=== PATIENT | male | born 1985 | race Caucasian/White ===

== ENCOUNTER 2016-11-12 12:07 | Emergency (ER) | payer OTHER, SELFPAY ==
--- NOTE | ~2016-11-12 | ER ---
PATIENT'S NAME: DAY AQUINO [facility] AGE: 31 Y [address] ROOM: [place] [id number] LOCATION: [facility] ADMIT DATE: 11/12/2016 ER/Outpatient Report DISCHARGE DATE: 11/12/2016 FAMILY PHYSICIAN: PHYSICIAN, NO ATTENDING PHYSICIAN: Sherry Kirby Time of Arrival: 1207 hours. Time of Evaluation: 1215 hours. CHIEF COMPLAINT: Nausea, vomiting, and diarrhea. HISTORY OF PRESENT ILLNESS: This is a 31-year-old male, who presents to the ER. He states he has had nausea, vomiting, diarrhea, and myalgias since Friday. He states he was started on lithium approximately a month ago, and they increased his dose last week. He states that on Friday, he did not take his dose because he went to a [employer] and ended up drinking heavily. He states then on Friday, he started not feeling well. He has had nausea and vomiting and some loose stools. He states that it has continued on until today. He did go to [facility], and they thought that maybe he has a lithium toxicity. He states that he does not feel short of breath. He has had no cough. Denies any chest pain. He states his legs ache, and he has some abdominal discomfort from all the dry heaving. ALLERGIES: CODEINE. MEDICATIONS: Please see medication list in nurse's notes. PAST MEDICAL HISTORY: Asthma, hypertension, and bipolar. PAST SURGICAL HISTORY: Tonsillectomy, he has had an eye corrective surgery, and his adenoids removed. SOCIAL HISTORY: Drinks alcohol socially. Denies any smoking or drug use. REVIEW OF SYSTEMS: A 10-point review of systems was completed and was negative with the exception of those discussed in the HPI. PHYSICAL EXAMINATION: PATIENT'S NAME: DAY AQUINO [facility] AGE: 31 Y [address] ROOM: [place] [address] LOCATION: [facility] ADMIT DATE: 11/12/2016 ER/Outpatient Report DISCHARGE DATE: 11/12/2016 FAMILY PHYSICIAN: PHYSICIAN, HECTOR ATTENDING PHYSICIAN: Sherry Kirby VITAL SIGNS: Weight 122.9 kg taken, blood pressure is 136/82, pulse 96, respirations 18, temperature 100.3 degrees tympanically, saturations 97% on room air. Jessie Coma Score is 15. GENERAL: Alert, calm, well-developed, 31-year-old, in no acute distress. HEENT: Head: Normocephalic. Eyes: Pupils are equal and reactive to light. Does display moist mucous membranes. LUNGS: Clear to auscultation bilaterally. No wheezes or crackles. Normal respiratory effort. HEART: Regular rate and rhythm. No lifts, thrills, or murmurs. ABDOMEN: Soft. He has generalized tenderness in his midepigastric region with palpation. No guarding or rebound tenderness. He has good bowel sounds throughout. MUSCULOSKELETAL: He does have full range of motion of all of his limbs. SKIN: Warm, dry, and intact. LABORATORY DATA AND X-RAYS: CBC: White count is 3.3, hemoglobin is 14.2, platelets 195, ANC is 1.8. CMS was unremarkable. Amylase 51, lipase 139. Ester is less than 0.5. Urinalysis was negative for any infection. No ketones in his urine. IMPRESSION: Nausea, vomiting, and diarrhea. ASSESSMENT AND PLAN: I did start an IV here in the emergency room. Did give him some IV fluids along with 2 mg of morphine, 4 mg of Zofran, and 40 mg of Protonix IV. The patient did rest comfortably his entire stay. His abdomen remained nonsurgical. He had no further emesis or diarrhea while he was here. We will dismiss him to home with a prescription for Zofran to use as directed. He needs to do small amounts of fluids frequently, monitor his symptoms. I did provide him with a work note, and he should follow up with his primary care physician if he is not improving. The patient understands, and agrees with care. BRISA AMES PA-C FOR MD EDUARDA PERSAUD/irina /[id number] d: 11/12/162048 t: 11/15/161941, OUTPATIENT REPORT
[2016-11-12 12:51] LABS: HEMATOCRIT 41.5 % (37.0-53.0); HEMOGLOBIN 14.2 g/dL (12.0-17.0); MCHC 34.2 gm/dL (32.0-36.5); MCV 81.9 fl (83.0-98.0); MPV 10.5 fl (9.4-12.4); PLATELET COUNT 195 K/uL (150-450); RBC 5.07 M/uL (4.00-6.00); RDW-CV 12.5 % (11.9-14.6); WBC 3.3 K/uL (4.0-11.0)
[2016-11-12 13:05] LABS: ALBUMIN 4.1 gm/dL (3.5-5.0); ALK PHOS 67 IU/L (33-138); ALT 50 IU/L (12-78); ANION GAP 12.7 (10.0-19.0); AST 29 IU/L (10-40); BLOOD UREA NITROGEN 10 mg/dL (6-24); CALCIUM 8.5 mg/dL (8.5-10.5); CHLORIDE 107 mMol/L (96-110); CO2 21 mMol/L (22-32); CREATININE 0.9 mg/dL (0.6-1.3); ESTIMATED GFR (MDRD EQUATION) > 60; POTASSIUM 3.7 mMol/L (3.7-5.1); SODIUM 137 mMol/L (135-145); TOTAL BILIRUBIN 0.4 mg/dL (0.0-1.5); TOTAL PROTEIN 7.4 g/dL (6.0-8.4)
[2016-11-12 13:22] LABS: ABSOLUTE NEUTROPHIL CT (ANC) 1.8 K/uL (1.4-9.0); BANDED NEUTROPHIL # 0.1 K/uL (0.0-0.1); BANDED NEUTROPHILS % 3 %; LYMPHOCYTE # 0.9 K/uL (0.8-4.0); LYMPHOCYTE % 28 %; MONOCYTE # 0.6 K/uL (0.0-1.0); SEGMENTED NEUTROPHIL # 1.7 K/uL (1.4-9.0); SEGMENTED NEUTROPHIL % 51 %
[2016-11-12 14:00] LABS: BILIRUBIN URINE NEGATIVE (NEGATIVE); BLOOD URINE NEGATIVE /UL (NEGATIVE); COLOR URINE YELLOW (YELLOW); GLUCOSE URINE NEGATIVE (NEGATIVE); KETONE URINE NEGATIVE (NEGATIVE); LEUKOCYTES URINE NEGATIVE /UL (NEGATIVE); NITRITE URINE NEGATIVE (NEGATIVE); PROTEIN URINE NEGATIVE (NEGATIVE); TURBIDITY URINE CLEAR (CLEAR); UROBILINOGEN URINE NORMAL (NORMAL)
== END 2016-11-12 14:05 | disposition disaster alternative care site (69) ==
LOC: GMED 12:07
PROVIDERS: Family Medicine; Physician Assistant Medical
DX: R11.2 Nausea with vomiting, unspecified (principal); R19.7 Diarrhea, unspecified; J45.909 Unspecified asthma, uncomplicated; I10 Essential (primary) hypertension; F31.9 Bipolar disorder, unspecified; Z90.89 Acquired absence of other organs; Z88.8 Allergy status to other drugs, medicaments and biological substances
CPT/HCPCS: C9113; J2270; J2405; J7030